=== PATIENT | female | born 1985 | race Caucasian/White ===

== ENCOUNTER 2017-05-31 20:16 | Emergency (ER) | payer BC, MEDICAID ==
[2017-05-31] MEDS ORDERED: Ketorolac 60 MG/2 ML SDV IM ONE (21:18)
[2017-05-31] MEDS ORDERED: Metoclopramide 10 MG/2 ML SDV IM ONE (21:18)
[2017-05-31] MEDS ORDERED: Promethazine 25 MG/ML SDV IM ONE (22:01)
--- NOTE | 2017-05-31 22:01 | EDM.PDOC ---
ED HPI GENERAL MEDICAL PROBLEM - General Chief Complaint: Headache Stated Complaint: MIGRAINE Time Seen by Provider: 05/31/17 21:40 Source of Information: Reports: Patient History Limitations: Reports: No Limitations - History of Present Illness INITIAL COMMENTS - FREE TEXT/NARRATIVE: c/o migraine has bifrontal WATTS x 4d, has used caffeine and ibuprofen, just not all at the same time, last used ibuprofen at 1 PM has nausea, no visual change, eating meals h/o migraine x 6y, PCP obtained MRI and CT 5y ago, say Dr Sims 3w ago and schedule to have MRI and CT repeated many different meds have been tried for WATTS with little benefit, on 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 nausea gone after Reglan, WATTS much better after Toradol and then began to return , now here to drive her home, will use Phenergan, meds given IM d/t likely difficulty of IV access last WATTS 1m ago, and then 2m before that Frontal headache Pain Score (Numeric/FACES): 9 - Related Data Allergies Allergy/AdvReac Type Severity Reaction Status Date / Time acetaminophen Allergy Nausea and Verified 04/14/14 07:57 [From Tylenol-Codeine #3] Vomiting codeine phosphate Allergy Nausea and Verified 04/14/14 07:57 [From Tylenol-Codeine #3] Vomiting Home Meds: Home Meds Ibuprofen 600 mg PO Q6H #100 tablet 04/16/14 [Rx] Amitriptyline [Elavil] 50 mg PO BEDTIME 05/31/17 [History] Past Medical History Gastrointestinal History: Reports: Cholelithiasis Genitourinary History: Reports: None 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: Musculoskeletal History: Reports: Fracture Other Musculoskeletal History: fx R wrist Neurological History: Reports: Migraines Endocrine/Metabolic History: Reports: Obesity/BMI 30+ Hematologic History: Reports: Other (See Below) Other Hematologic History: 'some bleeding disorder caused daughter @ 9mo to be stillborn.' Dermatologic History: Reports: Eczema - Infectious Disease History Infectious Disease History: Reports: Chicken Pox - Past Surgical History GI Surgical History: Reports: Cholecystectomy Female Surgical History: Reports: Section Musculoskeletal Surgical History: Reports: None Social & Family History - Family History Family Medical History: Noncontributory - Tobacco Use Smoking Status *Q: Current Every Day Smoker Years of Tobacco use: 15 Packs/Tins Daily: 0.3 - Caffeine Use Caffeine Use: Reports: Soda Other Caffeine Use: took excedrin migraine with caffeine for WATTS - Recreational Drug Use Recreational Drug Use: No ED ROS GENERAL - Review of Systems Review Of Systems: See Below Constitutional: Reports: No Symptoms HEENT: Reports: No Symptoms Respiratory: Reports: No Symptoms Cardiovascular: Reports: No Symptoms Endocrine: Reports: No Symptoms GI/Abdominal: Reports: No Symptoms : Reports: No Symptoms Musculoskeletal: Reports: No Symptoms Skin: Reports: No Symptoms Neurological: Reports: Headache Psychiatric: Reports: No Symptoms Hematologic/Lymphatic: Reports: No Symptoms Immunologic: Reports: No Symptoms - Physical Exam Exam: See Below Exam Limited By: No Limitations General Appearance: Alert, WD/WN, Mild Distress, Other (alert, nonill, nl speech , good eye contact, sitting on edge of bed) Eye Exam: Bilateral Eye: Normal Inspection Ears: Normal External Exam Nose: Normal Inspection Throat/Mouth: Normal Inspection, Normal Lips, Normal Teeth, Normal Gums, Normal Oropharynx, Normal Voice, No Airway Compromise Head Exam: Atraumatic, Normocephalic Neck: Normal Inspection, Supple, Non-Tender, Full Range of Motion Respiratory/Chest: No Respiratory Distress, Lungs Clear, Normal Breath Sounds Cardiovascular: Regular Rate, Rhythm GI/Abdominal: Soft, Non-Tender Neuro Exam (Abbreviated): Alert, Oriented, CN II-XII Intact, Normal Cognition, No Motor/Sensory Deficits Extremities: Normal Inspection, Normal Range of Motion, Non-Tender, No Pedal Edema, Normal Capillary Refill Psychiatric: Normal Affect, Normal Mood Skin Exam: Warm, Dry, Intact, Normal Color, No Rash Course - Vital Signs Last Recorded V/S: Last Vital Signs Temp 36.4 C 05/31/17 20:41 Pulse 86 05/31/17 20:41 Resp 20 05/31/17 20:41 BP 130/83 05/31/17 20:41 Pulse Ox 100 05/31/17 20:41 - Orders/Labs/Meds Meds: Medications Discontinued Medications Generic Name Dose Route Start Last Admin Trade Name Freq PRN Reason Stop Dose Admin Ketorolac Tromethamine 60 mg 05/31/17 21:18 05/31/17 21:25 Toradol IM 05/31/17 21:19 60 mg ONETIME ONE Administration Metoclopramide HCl 10 mg 05/31/17 21:18 05/31/17 21:27 Reglan IM 05/31/17 21:19 10 mg ONETIME ONE Administration Departure - Departure Time of Disposition: 22:12 Disposition: Home, Self-Care 01 Condition: Good Clinical Impression: Chronic daily headache - Discharge Information Forms: ED Department Discharge Additional Instructions: Continue ibuprofen 200 mg 3 tabs 4 times a day for 24 hours to help break the pain cycle. Use ice on the forehead for 10-15 minutes 4 times a day as needed. Rest. See your doctor in 2-5 days. Call your Physician or Return to Emergency Department if: * Your condition worsens in any way. * You develop fever greater than 100.4. * You have vomitting that does not stop with medications. * You have pain that is not controlled with medications.
[2017-05-31 22:18] VITALS: BP 133/83
== END 2017-05-31 22:20 | disposition home or self-care (01) ==
LOC: FB.ED 20:16
DX: R51 Headache (principal); E66.9 Obesity, unspecified; Z88.5 Allergy status to narcotic agent; Z90.49 Acquired absence of other specified parts of digestive tract; F17.210 Nicotine dependence, cigarettes, uncomplicated
CPT/HCPCS: 96372; 99283; J1885; J2550; J2765

== ENCOUNTER 2017-12-04 21:34 | Emergency (ER) | payer BC, MEDICAID ==
[2017-12-04 21:57] VITALS: BP 152/99
[2017-12-04] MEDS ORDERED: Acetaminophen/HYDROcodone 325-5 MG Tab PO ONE (22:07)
--- NOTE | 2017-12-04 22:08 | EDM.PDOC ---
ED HPI GENERAL MEDICAL PROBLEM - General Chief Complaint: General Stated Complaint: TOOTHACHE Time Seen by Provider: 12/04/17 21:50 Source of Information: Reports: Patient History Limitations: Reports: No Limitations - History of Present Illness INITIAL COMMENTS - FREE TEXT/NARRATIVE: 32 yo female here with dental pain. Has one day left of Amox that she was given earlier. Her dental appt is 12/15/17. No fevers or facial swelling. Tooth has broken off more than once. Her doctor is on medical leave. Onset: Gradual Duration: Day(s):, Getting Worse Location: Reports: Face (L mandible) Quality: Reports: Ache, Other (shooting at times) Severity: Moderate Improves with: Reports: None Worsens with: Reports: Other (? 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 ) - Related Data Allergies Allergy/AdvReac Type Severity Reaction Status Date / Time acetaminophen Allergy Nausea and Verified 12/04/17 21:49 [From Tylenol-Codeine #3] Vomiting codeine phosphate Allergy Nausea and Verified 12/04/17 21:49 [From Tylenol-Codeine #3] Vomiting tramadol Allergy Excitabilit Verified 12/04/17 21:51 y Home Meds: Home Meds Ibuprofen 600 mg PO Q6H #100 tablet 04/16/14 [Rx] Amitriptyline [Elavil] 50 mg PO BEDTIME 05/31/17 [History] Hydrocodone/Acetaminophen [[place] 5-325] 1 - 2 tab PO Q4H PRN #14 tablet [Rx] Penicillin V Potassium 500 mg PO Q8HR #30 tab 12/04/17 [Rx] Past Medical History Gastrointestinal History: Reports: Cholelithiasis Genitourinary History: Reports: None 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: Musculoskeletal History: Reports: Fracture Other Musculoskeletal History: fx R wrist Neurological History: Reports: Migraines Endocrine/Metabolic History: Reports: Obesity/BMI 30+ Hematologic History: Reports: Other (See Below) Other Hematologic History: 'some bleeding disorder caused daughter @ 9mo to be stillborn.' Dermatologic History: Reports: Eczema - Infectious Disease History Infectious Disease History: Reports: Chicken Pox - Past Surgical History GI Surgical History: Reports: Cholecystectomy Female Surgical History: Reports: Section Musculoskeletal Surgical History: Reports: None Social & Family History - Family History Family Medical History: Noncontributory - Tobacco Use Smoking Status *Q: Current Every Day Smoker Years of Tobacco use: 20 Packs/Tins Daily: 0.5 - Caffeine Use Caffeine Use: Reports: Soda Other Caffeine Use: took excedrin migraine with caffeine for WATTS - Alcohol Use Days Per Week of Alcohol Use: 1 Number of Drinks Per Day: 4 Total Drinks Per Week: 4 - Recreational Drug Use Recreational Drug Use: No Other Recreational Drug Type: Denies the use of recreational drugs. ED ROS GENERAL - Review of Systems Review Of Systems: See Below Constitutional: Reports: No Symptoms HEENT: Reports: Dental Pain Respiratory: Reports: No Symptoms Cardiovascular: Reports: No Symptoms GI/Abdominal: Reports: No Symptoms : Reports: No Symptoms Musculoskeletal: Reports: No Symptoms Skin: Reports: No Symptoms Neurological: Reports: No Symptoms ED EXAM, GENERAL - Physical Exam Exam: See Below Exam Limited By: No Limitations General Appearance: Alert, WD/WN, No Apparent Distress Eye Exam: Bilateral Eye: Normal Inspection Ears: Normal External Exam, Normal Canal, Hearing Grossly Normal, Normal TMs Ear Exam: Bilateral Ear: Auricle Normal, Canal Normal, TM normal Nose: Normal Inspection, Normal Mucosa, No Blood Throat/Mouth: Normal Inspection, Normal Lips, Normal Oropharynx, Normal Voice, No Airway Compromise, Other (L mandibular molar is markedly decayed and very tender with percussion. No facial swelling or cervical adenopathy.) Head: Atraumatic, Normocephalic. No: Facial Swelling Neck: Normal Inspection, Supple, Non-Tender. No: Lymphadenopathy (R), Lymphadenopathy (L) Neurological: Alert, Oriented, CN II-XII Intact, No Motor/Sensory Deficits Psychiatric: Normal Affect, Normal Mood Skin Exam: Warm, Dry, Intact, Normal Color, No Rash Lymphatic: No Adenopathy Course - Vital Signs Last Recorded V/S: Last Vital Signs Temp 36.9 C 12/04/17 21:45 Pulse 90 12/04/17 21:45 Resp 16 12/04/17 21:45 BP 152/99 H 12/04/17 21:45 Pulse Ox 100 12/04/17 21:45 Departure - Departure Time of Disposition: 22:09 Disposition: Home, Self-Care 01 Condition: Good Clinical Impression: Pain due to dental caries - Discharge Information Prescriptions: Penicillin V Potassium 500 mg PO Q8HR #30 tab Hydrocodone/Acetaminophen [[place] 5-325] 1 - 2 tab PO Q4H PRN #14 tablet PRN Reason: Pain Referrals: Jeffery Sims MD [Primary Care Provider] - Forms: ED Department Discharge Additional Instructions: Start Penicillin when your Amoxicillin runs out. Take ibuprofen if possible for your pain needed. Add acetaminophen OR [place] for added relief. See your dentist as scheduled. Follow up in the clinic if you need for pain meds before your dental appt.
== END 2017-12-04 22:12 | disposition home or self-care (01) ==
LOC: FB.ED 21:34
DX: K02.9 Dental caries, unspecified (principal); E66.9 Obesity, unspecified; F17.210 Nicotine dependence, cigarettes, uncomplicated; Z88.8 Allergy status to other drugs, medicaments and biological substances; Z88.5 Allergy status to narcotic agent; Z88.6 Allergy status to analgesic agent
CPT/HCPCS: 99282; A9270-GY

== ENCOUNTER 2018-02-12 22:02 | Emergency (ER) | payer BC, MEDICAID ==
--- NOTE | 2018-02-12 23:18 | EDM.PDOC ---
ED HPI GENERAL MEDICAL PROBLEM - General Chief Complaint: General Stated Complaint: TOOTHACHE Time Seen by Provider: 02/12/18 23:00 Source of Information: Reports: Patient History Limitations: Reports: No Limitations - History of Present Illness INITIAL COMMENTS - FREE TEXT/NARRATIVE: Letitia comes into [facility] ED with a left lower molar that apparently fractured a cusp last weekend, and is now painful. This tooth has been painful in the past , and she has not seen a DDS yet. She has tried Ibuprofen for pain relief. 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 Hematologic History: Reports: Other (See Below) Other Hematologic History: 'some bleeding disorder caused daughter @ 9mo to be stillborn.' Dermatologic History: Reports: Eczema - Infectious Disease History Infectious Disease History: Reports: Chicken Pox - Past Surgical History Head Surgeries/Procedures: Reports: None GI Surgical History: Reports: Cholecystectomy Female Surgical History: Reports: Section Other Musculoskeletal Surgeries/Procedures:: R wrist surgery Social & Family History - Family History Family Medical History: Noncontributory - Tobacco Use Smoking Status *Q: Current Every Day Smoker Years of Tobacco use: 20 Packs/Tins Daily: 0.2 - Caffeine Use Caffeine Use: Reports: Soda Other Caffeine Use: took excedrin migraine with caffeine for WATTS - Alcohol Use Days Per Week of Alcohol Use: 1 Number of Drinks Per Day: 4 Total Drinks Per Week: 4 - Recreational Drug Use Recreational Drug Use: No Other Recreational Drug Type: Denies the use of recreational drugs. ED ROS GENERAL - Review of Systems Review Of Systems: ROS reveals no pertinent complaints other than HPI. ED EXAM, GENERAL - Physical Exam Exam: See Below Exam Limited By: No Limitations General Appearance: Alert, WD/WN, Mild Distress Eye Exam: Bilateral Eye: EOMI, Normal Inspection, PERRL Ears: Normal External Exam Nose: Normal Inspection Throat/Mouth: Normal Lips, Normal Gums, Normal Oropharynx, Normal Voice, No Airway Compromise, Other (fractured buccal cusp #18, no swelling of gingivae) Head: Normocephalic Neck: Normal Inspection, Supple, Non-Tender, Full Range of Motion Respiratory/Chest: Lungs Clear Cardiovascular: Regular Rate, Rhythm Neurological: Alert, Oriented, CN II-XII Intact, Normal Cognition, No Motor/ Sensory Deficits Psychiatric: Normal Affect, Normal Mood Skin Exam: Warm, Dry Lymphatic: No Adenopathy Course - Vital Signs Text/Narrative:: Letitia remained stable at the [facility] ED. No meds were administered. Last Recorded V/S: Last Vital Signs Temp 36.8 C 02/12/18 22:45 Pulse 83 02/12/18 22:45 Resp 18 02/12/18 22:45 BP 129/63 02/12/18 22:45 Pulse Ox 100 02/12/18 22:45 Departure - Departure Time of Disposition: 23:17 Disposition: Home, Self-Care 01 Condition: Fair Clinical Impression: Pain due to dental caries - Discharge Information Referrals: Jeffery Sims MD [Primary Care Provider] - - Problem List & Annotations (1) Pain due to dental caries SNOMED Code(s): 71788062, [id number] Code(s): K02.9 - DENTAL CARIES, UNSPECIFIED Status: Acute Current Visit: Yes Annotation/Comment:: I suggested packing defect of #18 with cotton and oil of cloves, NSAIDs for pain, and see DDS regarding surgery. - Problem List Review Problem List Initiated/Reviewed/Updated: Yes - Assessment/Plan Plan: Follow up with DDS.
[2018-02-13 08:20] VITALS: BP 125/67
== END 2018-02-12 23:34 | disposition home or self-care (01) ==
LOC: FB.ED 22:02
DX: K02.9 Dental caries, unspecified (principal); F17.210 Nicotine dependence, cigarettes, uncomplicated; Z88.5 Allergy status to narcotic agent; Z88.8 Allergy status to other drugs, medicaments and biological substances; E66.9 Obesity, unspecified; Z68.42 Body mass index [BMI] 45.0-49.9, adult
CPT/HCPCS: 99282

== ENCOUNTER 2018-03-26 21:06 | Emergency (ER) | payer BC, MEDICAID ==
[2018-03-26] MEDS ORDERED: Ondansetron 4 MG Tab.DIS PO ONE ×3 (21:18→23:03)
[2018-03-26] MEDS ORDERED: Atropine/Diphenoxylate 0.025-2.5 MG Tab PO ONE (21:39)
--- NOTE | 2018-03-26 21:45 | EDM.PDOC ---
ED HPI GENERAL MEDICAL PROBLEM - General Chief Complaint: General Stated Complaint: NAUSEA Time Seen by Provider: 03/26/18 21:30 Source of Information: Reports: Patient, Old Records, RN History Limitations: Reports: No Limitations - History of Present Illness INITIAL COMMENTS - FREE TEXT/NARRATIVE: 32 yo female presents with nausea, vomiting, and diarrhea for a couple days. No bleeding. Thinks she has run a fever at times. Did take acetaminophen before coming to the ER today. Also mentions some red bumps on her lateral R arm that began within the past 24 hrs. Onset: Gradual Onset Date: 03/24/18 Duration: Day(s): (2+), Constant Location: Reports: Abdomen Quality: Reports: Other (cramps) Severity: Mild Improves with: Reports: None Worsens with: Reports: Eating Context: Reports: Other (unknown) Associated Symptoms: Reports: Fever/Chills, Nausea/Vomiting, Rash. 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 Hematologic History: Reports: Other (See Below) Other Hematologic History: 'some bleeding disorder caused daughter @ 9mo to be stillborn.' Dermatologic History: Reports: Eczema - Infectious Disease History Infectious Disease History: Reports: Chicken Pox - Past Surgical History Head Surgeries/Procedures: Reports: None GI Surgical History: Reports: Cholecystectomy Female Surgical History: Reports: Section Other Musculoskeletal Surgeries/Procedures:: R wrist surgery Social & Family History - Family History Family Medical History: Noncontributory - Tobacco Use Smoking Status *Q: Current Every Day Smoker Years of Tobacco use: 21 Packs/Tins Daily: 0.3 - Caffeine Use Caffeine Use: Reports: Soda Other Caffeine Use: took excedrin migraine with caffeine for WATTS - Recreational Drug Use Recreational Drug Use: No ED ROS GENERAL - Review of Systems Review Of Systems: See Below Constitutional: Reports: Fever, Malaise HEENT: Reports: No Symptoms Respiratory: Reports: Other (feels funny in her lungs when she takes a breath in. No SOB. ). Denies: Shortness of Breath, Wheezing, Cough, Sputum, Hemoptysis Cardiovascular: Reports: No Symptoms GI/Abdominal: Reports: Abdominal Pain, Diarrhea, Nausea, Vomiting. Denies: Black Stool, Bloody Stool, Constipation, Distension, Flatus, Hematemesis, Hematochezia, Melena, Stool Incontinence : Reports: No Symptoms Musculoskeletal: Reports: No Symptoms Skin: Reports: No Symptoms Neurological: Reports: No Symptoms Psychiatric: Reports: No Symptoms ED EXAM, GENERAL - Physical Exam Exam: See Below Exam Limited By: No Limitations General Appearance: Alert, WD/WN, No Apparent Distress Eye Exam: Bilateral Eye: Normal Inspection Ears: Normal External Exam, Normal Canal, Hearing Grossly Normal, Normal TMs Ear Exam: Bilateral Ear: Auricle Normal, Canal Normal, TM normal Nose: Normal Inspection, Normal Mucosa, No Blood Throat/Mouth: Normal Inspection, Normal Lips, Normal Oropharynx, Normal Voice, No Airway Compromise Head: Atraumatic, Normocephalic Neck: Normal Inspection, Supple Respiratory/Chest: No Respiratory Distress, Lungs Clear, Normal Breath Sounds, No Accessory Muscle Use Cardiovascular: Regular Rate, Rhythm GI/Abdominal: Normal Bowel Sounds, Soft, No Distention, Tender (mild, diffuse) Back Exam: Normal Inspection. No: CVA Tenderness (R), CVA Tenderness (L) Extremities: Normal Inspection, Normal Range of Motion, Non-Tender, No Pedal Edema Neurological: Alert, Oriented, CN II-XII Intact, Normal Cognition, No Motor/ Sensory Deficits Psychiatric: Normal Affect, Normal Mood Skin Exam: Warm, Dry, Intact, Normal Color, Rash (about 3 tiny papules to the lateral R arm. ) Course - Vital Signs Text/Narrative:: Feeling better after treatment, able to keep liquids down. Last Recorded V/S: Last Vital Signs Temp 36.9 C 03/26/18 21:06 Pulse 99 03/26/18 21:06 Resp 17 03/26/18 21:06 BP 152/89 H 03/26/18 21:06 Pulse Ox 100 03/26/18 21:06 Orthostatic Blood Pressure [ 134/93 Standing] Orthostatic Blood Pressure [ 125/75 Sitting] Orthostatic Blood Pressure [ 137/62 Supine] - Orders/Labs/Meds Orders: Active Orders 24 hr Category Date Time Status Orthostatic Vital Signs [RC] ASDIRECTED Care 03/26/18 21:18 Active Labs: Laboratory Tests 03/26/18 03/26/18 Range/Units 22:30 22:30 WBC 9.5 (4.5-12.0) X10-3/uL RBC 4.57 (3.23-5.20) x10(6)uL Hgb 13.7 (11.5-15.5) g/dL Hct 40.2 (30.0-51.3) % MCV 87.9 (80-96) fL MCH 29.9 (27.7-33.6) pg MCHC 34.0 (32.2-35.4) g/dL RDW 12.2 (11.5-15.5) % Plt Count 364 (125-369) X10(3)uL Sodium 138 (135-145) mmol/L Potassium 4.0 (3.5-5.3) mmol/L Chloride 100 (100-110) mmol/L Carbon Dioxide 30 (21-32) mmol/L BUN 11 (7-18) mg/dL Creatinine 0.9 (0.55-1.02) mg/dL Est Cr Clr Drug Dosing 64.46 mL/min Estimated GFR (MDRD) > 60 (>60) BUN/Creatinine Ratio 12.2 (9-20) Glucose 117 H (80-116) mg/dL Calcium 9.2 (8.6-10.2) mg/dL Meds: Medications Discontinued Medications Generic Name Dose Route Start Last Admin Trade Name Freq PRN Reason Stop Dose Admin Diphenoxylate HCl/Atropine 2 tab 03/26/18 21:39 03/26/18 21:50 Lomotil 0.025-2.5 Mg PO 03/26/18 21:40 2 tab ONETIME ONE Administration Ondansetron HCl 4 mg 03/26/18 21:18 03/26/18 21:22 Zofran Odt PO 03/26/18 21:19 4 mg ONETIME ONE Administration Ondansetron HCl 4 mg 03/26/18 22:24 03/26/18 22:32 Zofran Odt PO 03/26/18 22:25 4 mg ONETIME ONE Administration Departure - Departure Time of Disposition: 23:02 Disposition: Home, Self-Care 01 Condition: Fair Clinical Impression: Gastroenteritis - Discharge Information Referrals: Jeffery Sims MD [Primary Care Provider] - Forms: ED Department Discharge - My Orders Last 24 Hours: My Active Orders 03/26/18 21:18 Orthostatic Vital Signs [RC] ASDIRECTED - Assessment/Plan Last 24 Hours: My Active Orders 03/26/18 21:18 Orthostatic Vital Signs [RC] ASDIRECTED
[2018-03-26 23:24] VITALS: BP 129/66
== END 2018-03-26 23:20 | disposition home or self-care (01) ==
LOC: FB.ED 21:06
DX: K52.9 Noninfective gastroenteritis and colitis, unspecified (principal); E66.9 Obesity, unspecified; F17.210 Nicotine dependence, cigarettes, uncomplicated; Z88.8 Allergy status to other drugs, medicaments and biological substances; Z88.5 Allergy status to narcotic agent
CPT/HCPCS: 36415; 80048; 85027; 99283; A9270

== ENCOUNTER 2019-04-05 19:58 | Emergency (ER) | payer BC, MEDICAID ==
[2019-04-05] MEDS ORDERED: Ondansetron 8 MG Tab.DIS PO ONE (20:19)
[2019-04-05] MEDS ORDERED: Levofloxacin 500 MG Tab PO ONE (21:46)
--- NOTE | 2019-04-05 21:47 | EDM.PDOC ---
ED HPI GENERAL MEDICAL PROBLEM - General Stated Complaint: POOP BLOOD AND VOMIT BLOOD Time Seen by Provider: 04/05/19 19:58 Source of Information: Reports: Patient, Family History Limitations: Reports: No Limitations - History of Present Illness INITIAL COMMENTS - FREE TEXT/NARRATIVE: 33 y.o.w.f with a H/O Migraine H/A came to the ED with due to bood in her stool and urine on 2 occasions, vomited X 1 and H/A. Blood was mixed up with stool. Pt feels nauseated from her migraine H/A and is photophobic. Pt is allergic to Imitrex and Toradol. She is getting usually Dilaudid for her headache in the ED. She was seen by a neurologist many years a go, denied trauma. No Dizziness or light headedness. She has mild temporal H/A. Ambulates fine. gave to 5 children and may be . No other acute medical issues. BP 141/77 RR 16 Pulse ox 100% on RA Temp 36.8 Pulse 85 Onset Date: 04/05/19 Onset Time: 18:00 Duration: Hour(s):, Intermittent Location: Reports: Abdomen Quality: Reports: Burning Severity: Mild Improves with: Reports: None Worsens with: Reports: None Associated Symptoms: Reports: Other (Migraine H/A Dysuria) - Related Data Allergies Allergy/AdvReac Type Severity Reaction Status Date / Time acetaminophen Allergy Nausea and Verified 04/05/19 23:45 [From Tylenol-Codeine #3] Vomiting codeine phosphate Allergy Nausea and Verified 04/05/19 23:45 [From Tylenol-Codeine #3] Vomiting tramadol Allergy Excitabilit Verified 04/05/19 23:45 y Home Meds: Home Meds Multivitamin [Multi-Day Vitamins] 1 each PO DAILY 12/05/17 [History] levoFLOXacin [Levaquin] 500 mg PO Q48H #10 tab 04/05/19 [Rx] Past Medical History HEENT History: Reports: Other (See Below) Other HEENT History: Dental problems. 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 Hematologic History: Reports: Other (See Below) Other Hematologic History: 'some bleeding disorder caused daughter @ 9mo to be stillborn.' Dermatologic History: Reports: Eczema - Infectious Disease History Infectious Disease History: Reports: Chicken Pox - Past Surgical History Head Surgeries/Procedures: Reports: None GI Surgical History: Reports: Cholecystectomy Female Surgical History: Reports: Section Other Musculoskeletal Surgeries/Procedures:: R wrist surgery Social & Family History - Family History Family Medical History: Noncontributory - Caffeine Use Caffeine Use: Reports: Soda Other Caffeine Use: took excedrin migraine with caffeine for WATTS ED ROS GENERAL - Review of Systems Review Of Systems: See Below Constitutional: Reports: No Symptoms HEENT: Reports: No Symptoms Respiratory: Reports: No Symptoms Cardiovascular: Reports: No Symptoms Endocrine: Reports: No Symptoms GI/Abdominal: Reports: Bloody Stool : Reports: Dysuria Musculoskeletal: Reports: No Symptoms Skin: Reports: No Symptoms Neurological: Reports: No Symptoms Psychiatric: Reports: No Symptoms Hematologic/Lymphatic: Reports: No Symptoms Immunologic: Reports: No Symptoms - Physical Exam Exam: See Below Exam Limited By: No Limitations General Appearance: Alert, WD/WN, Mild Distress Eye Exam: Bilateral Eye: Normal Inspection Ears: Normal External Exam Nose: Normal Inspection Throat/Mouth: Normal Inspection, Normal Lips, Normal Voice, No Airway Compromise Head Exam: Atraumatic, Normocephalic Neck: Normal Inspection, Supple, Non-Tender, Full Range of Motion Respiratory/Chest: No Respiratory Distress, Lungs Clear, Normal Breath Sounds, Chest Non-Tender Cardiovascular: Normal Peripheral Pulses, Regular Rate, Rhythm, No Edema, No Gallop, No JVD, No Murmur, No Rub GI/Abdominal: Normal Bowel Sounds, Soft, Non-Tender, No Organomegaly, No Abnormal Bruit, No Mass (Female) Exam: Deferred Rectal (Female) Exam: Bloody Stool (X 2 ) Neuro Exam (Abbreviated): Alert, Oriented, CN II-XII Intact, Normal Cognition, Normal Gait Back Exam: Normal Inspection, Full Range of Motion Extremities: Normal Inspection, Normal Range of Motion, Non-Tender Psychiatric: Normal Affect, Normal Mood Skin Exam: Warm, Dry, Intact, Normal Color, No Rash Course - Vital Signs Text/Narrative:: 33 y.o.w.f with a H/O Migraine H/A came to the ED with due to bood in her stool and urine on 2 occasions, vomited X 1 and H/A. Blood was mixed up with stool. Pt feels nauseated from her migraine H/A and is photophobic. Pt is allergic to Imitrex and Toradol. She is getting usually Dilaudid for her headache in the ED. She was seen by a neurologist many years a go, denied trauma. No Dizziness or light headedness. She has mild temporal H/A. Ambulates fine. gave to 5 children and may be . No other acute medical issues. BP 141/77 RR 16 Pulse ox 100% on RA Temp 36.8 Pulse 85 PE: WNWD W F in NAD with H/A (minor), dysuria and blood in her stool on 2 occasions. Imaging: Not indicated Labs: CBC, BMP nl except: Cr was 1.1 and GFR was 54 UA:L Pos for UTI with Hematuria\ Impression:Migraijne H/A, Hematochezia, UTI Tx: Levaquin, Zofran, Dexamethasone Reexam: Improved Plan: D/C with instructions addendum 04/06/2019,10.00 am Called the pt to remind her to F/U with Dr. Mosely regarding her blood in her stool 1.35 pm I have called [facility], Pharmacist. Changed meds to Levaquin every 24 hours for 10 days. Last Recorded V/S: Last Vital Signs Temp 36.8 C 04/05/19 23:30 Pulse 87 04/05/19 20:45 Resp 16 04/05/19 23:30 BP 130/82 04/05/19 23:30 Pulse Ox 99 04/05/19 23:30 - Orders/Labs/Meds Orders: Active Orders 24 hr Category Date Time Status CULTURE URINE [RM] Stat Lab 04/05/19 21:25 Received Labs: Laboratory Tests 04/05/19 04/05/19 04/05/19 Range/Units 20:43 20:43 21:25 WBC 11.3 (4.5-12.0) X10-3/uL RBC 4.47 (3.23-5.20) x10(6)uL Hgb 14.2 (11.5-15.5) g/dL Hct 40.0 (30.0-51.3) % MCV 89.5 (80-96) fL MCH 31.8 (27.7-33.6) pg MCHC 35.5 H (32.2-35.4) g/dL RDW 13.0 (11.5-15.5) % Plt Count 321 (125-369) X10(3)uL MPV 8.6 (7.4-10.4) fL Neut % (Auto) 61.6 (46-82) % Lymph % (Auto) 31.0 (13-37) % Gove % (Auto) 4.3 (4-12) % Eos % (Auto) 2 (1.0-5.0) % Baso % (Auto) 1 (0-2) % Neut # (Auto) 6.9 (1.6-8.3) # Lymph # (Auto) 3.5 (0.6-5.0) # Gove # (Auto) 0.5 (0.0-1.3) # Eos # (Auto) 0.3 (0.0-0.8) # Baso # (Auto) 0.1 (0.0-0.2) # Sodium 142 (135-145) mmol/L Potassium 3.5 (3.5-5.3) mmol/L Chloride 105 D (100-110) mmol/L Carbon Dioxide 26 (21-32) mmol/L BUN 10 (7-18) mg/dL Creatinine 1.1 H (0.55-1.02) mg/dL Est Cr Clr Drug Dosing TNP Estimated GFR (MDRD) 57 L (>60) BUN/Creatinine Ratio 9.1 (9-20) Glucose 105 (80-116) mg/dL Calcium 9.3 (8.6-10.2) mg/dL Urine Color Yellow (YELLOW) Urine Appearance Cloudy (CLEAR) Urine pH 5.0 (5.0-6.5) Ur Specific [place] 1.020 (1.010-1.025) Urine Protein Negative (NEGATIVE) mg/dL Urine Glucose (UA) Normal (NORMAL) mg/dL Urine Ketones Negative (NEGATIVE) mg/dL Urine Occult Blood Large H (NEGATIVE) Urine Nitrite Negative (NEGATIVE) Urine Bilirubin Negative (NEGATIVE) Urine Urobilinogen 1 H (NEGATIVE) mg/dL Ur Leukocyte Esterase Large H (NEGATIVE) Urine RBC 5-10 H (0-5) Urine WBC 5-10 H (0-5) Ur Squamous Epith Cells Moderate H (NS,R,O) Urine Bacteria Moderate H (NS) Urine Mucus Moderate H (NS) Urine HCG, Qual (NEGATIVE) 04/05/19 Range/Units 21:25 WBC (4.5-12.0) X10-3/uL RBC (3.23-5.20) x10(6)uL Hgb (11.5-15.5) g/dL Hct (30.0-51.3) % MCV (80-96) fL MCH (27.7-33.6) pg MCHC (32.2-35.4) g/dL RDW (11.5-15.5) % Plt Count (125-369) X10(3)uL MPV (7.4-10.4) fL Neut % (Auto) (46-82) % Lymph % (Auto) (13-37) % Gove % (Auto) (4-12) % Eos % (Auto) (1.0-5.0) % Baso % (Auto) (0-2) % Neut # (Auto) (1.6-8.3) # Lymph # (Auto) (0.6-5.0) # Gove # (Auto) (0.0-1.3) # Eos # (Auto) (0.0-0.8) # Baso # (Auto) (0.0-0.2) # Sodium (135-145) mmol/L Potassium (3.5-5.3) mmol/L Chloride (100-110) mmol/L Carbon Dioxide (21-32) mmol/L BUN (7-18) mg/dL Creatinine (0.55-1.02) mg/dL Est Cr Clr Drug Dosing Estimated GFR (MDRD) (>60) BUN/Creatinine Ratio (9-20) Glucose (80-116) mg/dL Calcium (8.6-10.2) mg/dL Urine Color (YELLOW) Urine Appearance (CLEAR) Urine pH (5.0-6.5) Ur Specific [place] (1.010-1.025) Urine Protein (NEGATIVE) mg/dL Urine Glucose (UA) (NORMAL) mg/dL Urine Ketones (NEGATIVE) mg/dL Urine Occult Blood (NEGATIVE) Urine Nitrite (NEGATIVE) Urine Bilirubin (NEGATIVE) Urine Urobilinogen (NEGATIVE) mg/dL Ur Leukocyte Esterase (NEGATIVE) Urine RBC (0-5) Urine WBC (0-5) Ur Squamous Epith Cells (NS,R,O) Urine Bacteria (NS) Urine Mucus (NS) Urine HCG, Qual Negative (NEGATIVE) Meds: Medications Discontinued Medications Generic Name Dose Route Start Last Admin Trade Name Freq PRN Reason Stop Dose Admin Dexamethasone 10 mg 04/05/19 22:56 04/05/19 23:02 Dexamethasone IM 04/05/19 22:57 10 mg ONETIME ONE Administration Levofloxacin 500 mg 04/05/19 21:46 04/05/19 22:45 Levaquin PO 04/05/19 21:47 500 mg ONETIME ONE Administration Ondansetron HCl 8 mg 04/05/19 20:19 04/05/19 21:20 Zofran Odt PO 04/05/19 20:20 8 mg ONETIME ONE Administration Departure - Departure Time of Disposition: 23:29 Disposition: Home, Self-Care 01 Condition: Good Clinical Impression: Hematochezia UTI (urinary tract infection) Qualifiers: Urinary tract infection type: acute cystitis Hematuria presence: with hematuria Qualified Code(s): N30.01 - Acute cystitis with hematuria - Discharge Information Prescriptions: levoFLOXacin [Levaquin] 500 mg PO Q48H #10 tab Instructions: Urinary Tract Infection, Adult Referrals: Jeffery Sims MD [Primary Care Provider] - Forms: ED Department Discharge Additional Instructions: Please increase water intake, please take Levaquin as recommended, please f/u, come back if your symptoms get worse acutely - My Orders Last 24 Hours: My Active Orders 04/05/19 21:25 CULTURE URINE [RM] Stat - Assessment/Plan Last 24 Hours: My Active Orders 04/05/19 21:25 CULTURE URINE [RM] Stat
[2019-04-05] MEDS ORDERED: Dexamethasone 4 MG/ML SDV IM ONE (22:56)
[2019-04-06 00:22] VITALS: BP 130/82
== END 2019-04-05 23:35 | disposition home or self-care (01) ==
LOC: FB.ED 19:58
DX: N30.01 Acute cystitis with hematuria (principal); K92.1 Melena; G43.909 Migraine, unspecified, not intractable, without status migrainosus; Z88.6 Allergy status to analgesic agent; Z88.8 Allergy status to other drugs, medicaments and biological substances; Z79.899 Other long term (current) drug therapy
CPT/HCPCS: 36415; 80048; 81001; 81025; 85025; 87086; 96372; 99284; A9270; J1100

== ENCOUNTER 2019-11-13 09:23 | Emergency (ER) | payer MEDICAID ==
--- NOTE | 2019-11-13 10:25 | EDM.PDOC ---
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 Mid umbilical pain,moderate to severe.Associated with nausea. Nothing helps. She recently found out she is but not sure how far. She also has a h/o recurrent utis and would like to be checked for it.Denies any vaginal bleeding lower abdomen Pain Score (Numeric/FACES): 6 - Related Data Allergies Allergy/AdvReac Type Severity Reaction Status Date / Time acetaminophen Allergy Nausea and Verified 04/05/19 23:45 [From Tylenol-Codeine #3] Vomiting codeine phosphate Allergy Nausea and Verified 04/05/19 23:45 [From Tylenol-Codeine #3] Vomiting tramadol Allergy Excitabilit Verified 04/05/19 23:45 y Home Meds: Home Meds Multivitamin [Multi-Day Vitamins] 1 each PO DAILY 12/05/17 [History] levoFLOXacin [Levaquin] 500 mg PO Q48H #10 tab 04/05/19 [Rx] Past Medical History HEENT History: Reports: Other (See Below) Other HEENT History: Dental problems. Cardiovascular History: Reports: Other (See Below) Other Cardiovascular History: htn towards the end of her pregnancies. 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 Hematologic History: Reports: Other (See Below) Other Hematologic History: 'some bleeding disorder caused daughter @ 9mo to be stillborn.' Dermatologic History: Reports: Eczema - Infectious Disease History Infectious Disease History: Reports: Chicken Pox - Past Surgical History Head Surgeries/Procedures: Reports: None GI Surgical History: Reports: Cholecystectomy Female Surgical History: Reports: Section Other Musculoskeletal Surgeries/Procedures:: R wrist surgery Social & Family History - Family History Family Medical History: Noncontributory - Tobacco Use Smoking Status *Q: Current Some Day Smoker Years of Tobacco use: 21 Packs/Tins Daily: 0.2 - Caffeine Use Caffeine Use: Reports: Energy Drinks, Soda Other Caffeine Use: took excedrin migraine with caffeine for WATTS - Recreational Drug Use Recreational Drug Use: No ED ROS GENERAL - Review of Systems Review Of Systems: Comprehensive ROS is negative, except as noted in HPI. ED EXAM, GI/ABD - Physical Exam Exam: See Below Exam Limited By: No Limitations General Appearance: Alert, WD/WN, No Apparent Distress Eyes: Bilateral: Normal Appearance, EOMI Ears: Normal External Exam, Normal Canal, Hearing Grossly Normal, Normal TMs Nose: Normal Inspection, Normal Mucosa, No Blood Throat/Mouth: Normal Inspection, Normal Lips, Normal Teeth, Normal Gums, Normal Oropharynx, Normal Voice, No Airway Compromise Head: Atraumatic, Normocephalic Neck: Normal Inspection, Supple, Non-Tender, Full Range of Motion Respiratory/Chest: No Respiratory Distress, Lungs Clear, Normal Breath Sounds, No Accessory Muscle Use, Chest Non-Tender Cardiovascular: Normal Peripheral Pulses, Regular Rate, Rhythm, No Edema, No Gallop, No JVD, No Murmur, No Rub GI/Abdominal Exam: Normal Bowel Sounds, Soft, Non-Tender, No Organomegaly, No Distention, No Abnormal Bruit, No Mass, Pelvis Stable (Female) Exam: Normal External Exam, Normal Speculum Exam, Normal Bimanual Exam Rectal (Female) Exam: Normal Exam, Normal Rectal Tone Back Exam: Normal Inspection, Full Range of Motion, NT Extremities: Normal Inspection, Normal Range of Motion, Non-Tender, Normal Capillary Refill, No Pedal Edema Neurological: Alert, Oriented, CN II-XII Intact, Normal Cognition, Normal Gait, Normal Reflexes, No Motor/Sensory Deficits Psychiatric: Normal Affect, Normal Mood Skin Exam: Warm, Dry, Intact, Normal Color, No Rash Lymphatic: No Adenopathy Course - Vital Signs Last Recorded V/S: Last Vital Signs Temp 97.9 F 11/13/19 09:25 Pulse 81 11/13/19 09:25 Resp 14 11/13/19 09:25 BP 135/77 11/13/19 09:25 Pulse Ox 100 11/13/19 09:25 - Orders/Labs/Meds Orders: Active Orders 24 hr Category Date Time Status OB Ltd 1 or More Fetus [US] Stat Exams 11/13/19 10:10 Ordered Labs: Laboratory Tests 11/13/19 11/13/19 Range/Units 09:41 09:41 Urine Color Yellow (YELLOW) Urine Appearance Clear (CLEAR) Urine pH 6.0 (5.0-6.5) Ur Specific [place] 1.020 (1.010-1.025) Urine Protein Negative (NEGATIVE) mg/dL Urine Glucose (UA) Normal (NORMAL) mg/dL Urine Ketones Negative (NEGATIVE) mg/dL Urine Occult Blood Negative (NEGATIVE) Urine Nitrite Negative (NEGATIVE) Urine Bilirubin Negative (NEGATIVE) Urine Urobilinogen Normal (NEGATIVE) mg/dL Ur Leukocyte Esterase Negative (NEGATIVE) Urine WBC 0-5 (0-5) Ur Squamous Epith Cells Few H (NS,R,O) Urine Bacteria Few H (NS) Urine HCG, Qual Positive H (NEGATIVE) Departure - Departure Time of Disposition: 10:23 Disposition: Home, Self-Care 01 Condition: Good Clinical Impression: Intestinal cramps - Discharge Information Instructions: Abdominal Pain During , [id number] Referrals: Jeffery Sims MD [Primary Care Provider] - Forms: ED Department Discharge Care Plan Goals: Follow up with primary care provider on monday. Rest and drink fluids. Sepsis Event Note - Evaluation Sepsis Screening Result: No Definite Risk - Focused Exam Vital Signs: Vital Signs Temp Pulse Resp BP Pulse Ox 11/13/19 09:25 97.9 F 81 14 135/77 100 Date Exam was Performed: 11/13/19 Time Exam was Performed: 10:21 - Problem List & Annotations (1) Early stage of SNOMED Code(s): 088409203 Code(s): Z34.90 - ENCNTR FOR SUPRVSN OF NORMAL , UNSP, UNSP TRIMESTER Status: Acute Current Visit: Yes (2) Intestinal cramps SNOMED Code(s): 103554770, 003367664 Code(s): R10.9 - UNSPECIFIED ABDOMINAL PAIN Status: Acute Current Visit: Yes - Problem List Review Problem List Initiated/Reviewed/Updated: Yes - My Orders Last 24 Hours: My Active Orders 11/13/19 10:10 OB Ltd 1 or More Fetus [US] Stat - Assessment/Plan Last 24 Hours: My Active Orders 11/13/19 10:10 OB Ltd 1 or More Fetus [US] Stat Plan: UA was negative.HCG positive. Discussed follow up with Levi next week.Perhaps US if required.Return to Ed with any worsening symptoms
[2019-11-13 11:06] VITALS: BP 110/62; PULSE 79
== END 2019-11-13 10:27 | disposition home or self-care (01) ==
LOC: FB.ED 09:23
DX: O99.89 Other specified diseases and conditions complicating pregnancy, childbirth and the puerperium (principal); R10.30 Lower abdominal pain, unspecified; O99.330 Smoking (tobacco) complicating pregnancy, unspecified trimester; F17.210 Nicotine dependence, cigarettes, uncomplicated; Z88.6 Allergy status to analgesic agent; Z88.5 Allergy status to narcotic agent; Z79.899 Other long term (current) drug therapy
CPT/HCPCS: 81001; 81025; 99284-25

== ENCOUNTER 2021-03-13 17:36 | Emergency (ER) | payer MEDICAID ==
[2021-03-13] MEDS ORDERED: Amoxicillin 500 MG Cap PO ONE ×2 (17:37→17:57)
[2021-03-13 17:58] VITALS: BP 131/79; PULSE 84
[2021-03-13] MEDS ORDERED: Lidocaine 2% Viscous Solution 15 ML Cup PO ONE (17:58)
[2021-03-13] MEDS ORDERED: Lidocaine 2% Viscous Solution 15 ML Cup ONE (18:00)
--- NOTE | 2021-03-13 18:01 | EDM.PDOC ---
ED HPI GENERAL MEDICAL PROBLEM - General Stated Complaint: MOUTH INFECTION Time Seen by Provider: 03/13/21 17:40 Source of Information: Reports: Patient History Limitations: Reports: No Limitations - History of Present Illness INITIAL COMMENTS - FREE TEXT/NARRATIVE: c/o mouth pain and swell pt with poor dentition, saw dentist 3m ago and had some teeth pulled, has appointment 03/28 to pull additional teeth says she had gotten an antbx a few weeks ago for an tooth abscess on R mandible that then resolved awoke this AM with swell and pain at left mandible - Related Data Allergies Allergy/AdvReac Type Severity Reaction Status Date / Time acetaminophen Allergy Nausea and Verified 04/05/19 23:45 [From Tylenol-Codeine #3] Vomiting codeine phosphate Allergy Nausea and Verified 04/05/19 23:45 [From Tylenol-Codeine #3] Vomiting tramadol Allergy Excitabilit Verified 04/05/19 23:45 y Home Meds: Home Meds Multivitamin [Multi-Day Vitamins] 1 each PO DAILY 12/05/17 [History] levoFLOXacin [Levaquin] 500 mg PO Q48H #10 tab 04/05/19 [Rx] Past Medical History HEENT History: Reports: Other (See Below) Other HEENT History: Dental problems. Cardiovascular History: Reports: Other (See Below) Other Cardiovascular History: htn towards the end of her pregnancies. 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 Hematologic History: Reports: Other (See Below) Other Hematologic History: 'some bleeding disorder caused daughter @ 9mo to be stillborn.' Dermatologic History: Reports: Eczema - Infectious Disease History Infectious Disease History: Reports: Chicken Pox - Past Surgical History Head Surgeries/Procedures: Reports: None GI Surgical History: Reports: Cholecystectomy Female Surgical History: Reports: Section Other Musculoskeletal Surgeries/Procedures:: R wrist surgery Social & Family History - Family History Family Medical History: No Pertinent Family History - Caffeine Use Caffeine Use: Reports: Energy Drinks, Soda Other Caffeine Use: took excedrin migraine with caffeine for WATTS ED ROS ENT - Review of Systems Review Of Systems: See Below Constitutional: Reports: No Symptoms HEENT: Reports: Dental Pain Respiratory: Reports: No Symptoms Endocrine: Reports: No Symptoms GI/Abdominal: Reports: No Symptoms : Reports: No Symptoms Musculoskeletal: Reports: No Symptoms Skin: Reports: No Symptoms Neurological: Reports: No Symptoms Psychiatric: Reports: No Symptoms Hematologic/Lymphatic: Reports: No Symptoms Immunologic: Reports: No Symptoms ED EXAM, ENT - Physical Exam Exam: See Below Exam Limited By: No Limitations General Appearance: Alert, WD/WN, No Apparent Distress Mouth/Throat: Other (tooth #18 is ) Course - Re-Assessments/Exams Free Text/Narrative Re-Assessment/Exam: 03/13/21 18:02 there is 1+ tender at #18 and bulge of gingiva laterally, there is soft tissue swell of 6 x 6 x 1.5 cm overlying mandible, with several 0.5 cm palpable LNs inferiorly Departure - Departure Time of Disposition: 17:58 Disposition: Home, Self-Care 01 Condition: Good Clinical Impression: Dental abscess - Discharge Information *PRESCRIPTION DRUG MONITORING PROGRAM REVIEWED*: Not Applicable *COPY OF PRESCRIPTION DRUG MONITORING REPORT IN PATIENT JENNIFER: Not Applicable Instructions: Dental Abscess Referrals: Jeffery Sims MD [Primary Care Provider] - Additional Instructions: For pain, take ibuprofen 200 mg 4 tabs and acetaminophen 500 mg 2 tabs 3 times a day for 2 days, longer if needed. For pain, put a thin layer of 2% viscous lidocaine on a cotton ball and bite down every hour as needed. For infection, take amoxicillin 500 mg 1 capsule 3 times a day for 7 days. Use cool, soft food and liquids. Use ice for 5 minutes every hour as needed Notify your dentist who may want to schedule an earlier appointment.
[2021-03-13] MEDS ORDERED: Amoxicillin 500 MG Cap ONE (18:02)
== END 2021-03-13 17:55 | disposition home or self-care (01) ==
LOC: FB.ED 17:36
DX: K04.7 Periapical abscess without sinus (principal); Z88.5 Allergy status to narcotic agent; Z88.6 Allergy status to analgesic agent; Z88.8 Allergy status to other drugs, medicaments and biological substances; E66.9 Obesity, unspecified; Z68.42 Body mass index [BMI] 45.0-49.9, adult
CPT/HCPCS: 99282; A9270

== ENCOUNTER 2021-04-14 20:56 | Emergency (ER) | payer MEDICAID ==
[2021-04-14] MEDS ORDERED: Ketorolac 30 MG/ML SDV IVPUSH STA (21:24)
[2021-04-14] MEDS ORDERED: Ondansetron 4 MG/2 ML SDV IVPUSH STA (21:24)
[2021-04-14] MEDS ORDERED: Sodium Chloride 0.9% 10 ML Syringe FLUSH PRN (21:24)
[2021-04-14] MEDS ORDERED: Morphine 2 MG/ML SYRINGE IVPUSH STA (21:26)
[2021-04-14] MEDS ORDERED: Sodium Chloride 0.9% 1,000 ML IV SCH (21:30)
[2021-04-14] MEDS ORDERED: Iopamidol 755 Mg/ML 100 ML Bottle IV ONE (21:33)
--- NOTE | 2021-04-14 22:01 | EDM.PDOC ---
ED HPI GENERAL MEDICAL PROBLEM - General Chief Complaint: Abdominal Pain Stated Complaint: RT SIDE ABD PAIN Time Seen by Provider: 04/14/21 21:05 Source of Information: Reports: Patient History Limitations: Reports: No Limitations - History of Present Illness INITIAL COMMENTS - FREE TEXT/NARRATIVE: Patient presented to the ED because of RLQ pain which started this morning and p rogressively got worse throughout the day. The pain is cramping, continuous, 8/10 with associated nausea but no vomiting. There is no fever,chills, changes in bowel symptoms or urinary symptoms. Right Lower Abdomen Pain Score (Numeric/FACES): 8 - Related Data Allergies Allergy/AdvReac Type Severity Reaction Status Date / Time acetaminophen Allergy Nausea and Verified 04/14/21 21:19 [From Tylenol-Codeine #3] Vomiting codeine phosphate Allergy Nausea and Verified 04/14/21 21:19 [From Tylenol-Codeine #3] Vomiting tramadol Allergy Excitabilit Verified 04/14/21 21:19 y Home Meds: Home Meds Multivitamin [Multi-Day Vitamins] 1 each PO DAILY 12/05/17 [History] Past Medical History HEENT History: Reports: Other (See Below) Other HEENT History: Dental problems. Cardiovascular History: Reports: Other (See Below) Other Cardiovascular History: htn towards the end of her pregnancies. Gastrointestinal History: Reports: Cholelithiasis Genitourinary History: Reports: None POPCORN ATTENDANT History: Reports: , Spontaneous Other POPCORN ATTENDANT History: , misscarriage X2, 1 fullterm stillborn (short cord syndrome) Musculoskeletal History: Reports: Fracture Other Musculoskeletal History: fx R wrist Neurological History: Reports: Migraines Psychiatric History: Reports: Anxiety, Depression, Other (See Below) Other Psychiatric History: hx of drug use Endocrine/Metabolic History: Reports: Diabetes, Gestational, Obesity/BMI 30+ Other Endocrine/Metabolic History: Gestational diabetes. Hematologic History: Reports: Other (See Below) Other Hematologic History: 'some bleeding disorder caused daughter @ 9mo to be stillborn.' Dermatologic History: Reports: Eczema - Infectious Disease History Infectious Disease History: Reports: Chicken Pox - Past Surgical History Head Surgeries/Procedures: Reports: None GI Surgical History: Reports: Cholecystectomy Female Surgical History: Reports: Section Other Female Surgeries/Procedures: C-sections X3. Musculoskeletal Surgical History: Reports: None Other Musculoskeletal Surgeries/Procedures:: R wrist surgery Social & Family History - Family History Family Medical History: No Pertinent Family History - Tobacco Use Tobacco Use Status *Q: Current Every Day Tobacco User Years of Tobacco use: 20 Packs/Tins Daily: 0.2 - Caffeine Use Caffeine Use: Reports: None Other Caffeine Use: took excedrin migraine with caffeine for WATTS - Recreational Drug Use Recreational Drug Use: No ED ROS GENERAL - Review of Systems Review Of Systems: See Below Constitutional: Reports: No Symptoms HEENT: Reports: No Symptoms Respiratory: Reports: No Symptoms Cardiovascular: Reports: No Symptoms Endocrine: Reports: No Symptoms GI/Abdominal: Reports: Abdominal Pain, Nausea : Reports: No Symptoms Musculoskeletal: Reports: No Symptoms Skin: Reports: No Symptoms Neurological: Reports: No Symptoms ED EXAM, GI/ABD - Physical Exam Exam: See Below Exam Limited By: No Limitations General Appearance: Alert, No Apparent Distress Ears: Normal External Exam, Normal Canal Nose: Normal Inspection, Normal Mucosa Throat/Mouth: Normal Inspection, Normal Lips Head: Atraumatic, Normocephalic Neck: Normal Inspection, Supple, Non-Tender, Full Range of Motion Respiratory/Chest: No Respiratory Distress, Lungs Clear, Normal Breath Sounds Cardiovascular: Normal Peripheral Pulses, Regular Rate, Rhythm, No Edema, No JVD, No Murmur GI/Abdominal Exam: Normal Bowel Sounds, Soft, Non-Tender, No Organomegaly Back Exam: Normal Inspection, Full Range of Motion Extremities: Normal Inspection, Normal Range of Motion, Non-Tender Neurological: Alert, Oriented Course - Vital Signs Text/Narrative:: Lab and CT result was reviewed and discussed with patient NS 1 L bolus Zofran 4 mg IV x1 Toradol 30 mg IV x1 Morphine 2 mg IV x1 Last Recorded V/S: Last Vital Signs Temp 36.9 C 04/14/21 21:00 Pulse 83 04/14/21 21:00 Resp 20 04/14/21 21:00 BP 150/93 H 04/14/21 21:00 Pulse Ox 99 04/14/21 21:00 - Orders/Labs/Meds Orders: Active Orders 24 hr Category Date Time Status Abdomen Pelvis w Cont [CT] Stat Exams 04/14/21 21:27 Taken Sodium Chloride 0.9% [Normal Saline] 1,000 ml Med 04/14/21 21:30 Active IV ASDIRECTED Sodium Chloride 0.9% [Saline Flush] Med 04/14/21 21:24 Active 10 ml FLUSH ASDIRECTED PRN Saline Lock Insert [OM.PC] Routine Oth 04/14/21 21:24 Ordered Medication Orders Sodium Chloride (Normal Saline) 1,000 mls @ 999 mls/hr IV ASDIRECTED ANICETO Last Admin: 04/14/21 22:07 Dose: 999 mls/hr Documented by: LEVAR Sodium Chloride (Sodium Chloride 0.9% 10 Ml Syringe) 10 ml FLUSH ASDIRECTED PRN PRN Reason: Keep Vein Open Last Admin: 04/14/21 21:42 Dose: 10 ml Documented by: LEVAR Labs: Laboratory Tests 04/14/21 04/14/21 04/14/21 Range/Units 21:20 21:20 21:20 WBC 11.2 H (3.0-10.3) x10-3/uL RBC 4.49 (3.60-5.20) x10(6)uL Hgb 13.4 (11.4-15.5) g/dL Hct 39.3 (34.2-48.2) % MCV 87.5 (76.7-100.5) fL MCH 29.8 (23.9-33.9) pg MCHC 34.1 (31.9-34.8) g/dL RDW 13.1 (12.3-16.5) % Plt Count 352 (151-488) x10(3)uL MPV 8.9 (7.1-12.4) fL Neut % (Auto) 57.3 (30.8-76.2) % Lymph % (Auto) 34.7 (18.4-52.1) % [place] % (Auto) 5.3 (4.4-15.7) % Eos % (Auto) 1.8 (0.6-8.1) % Baso % (Auto) 0.9 (0.2-1.5) % Neut # (Auto) 6.4 H (1.5-6.3) x10-3/uL Lymph # (Auto) 3.9 (1.0-4.4) x10-3/uL [place] # (Auto) 0.6 (0.3-1.0) x10-3/uL Eos # (Auto) 0.2 (0.0-0.8) x10-3/uL Baso # (Auto) 0.1 (0.0-0.1) x10-3/uL Sodium 140 (135-145) mmol/L Potassium 3.7 (3.5-5.3) mmol/L Chloride 103 (100-110) mmol/L Carbon Dioxide 27 (21-32) mmol/L BUN 9 (7-18) mg/dL Creatinine 1.1 H (0.55-1.02) mg/dL Est Cr Clr Drug Dosing TNP Estimated GFR (MDRD) 57 L (>60) BUN/Creatinine Ratio 8.2 L (9-20) Glucose 98 (80-116) mg/dL Calcium 8.0 L (8.6-10.2) mg/dL Total Bilirubin 0.4 (0.1-1.3) mg/dL AST 18 (5-25) IU/L ALT 28 (12-36) U/L Alkaline Phosphatase 101 (56-112) IU/L Total Protein 8.9 H (6.0-8.0) g/dL Albumin 3.4 L (3.5-5.2) g/dL Globulin 5.5 g/dL Albumin/Globulin Ratio 0.6 Amylase 37 (25-115) U/L Lipase 92 (73-393) U/L Urine Color (YELLOW) Urine Appearance (CLEAR) Urine pH (5.0-6.5) Ur Specific [place] (1.010-1.025) Urine Protein (NEGATIVE) mg/dL Urine Glucose (UA) (NORMAL) mg/dL Urine Ketones (NEGATIVE) mg/dL Urine Occult Blood (NEGATIVE) Urine Nitrite (NEGATIVE) Urine Bilirubin (NEGATIVE) Urine Urobilinogen (NEGATIVE) mg/dL Ur Leukocyte Esterase (NEGATIVE) Urine RBC (0-5) Urine WBC (0-5) Ur Squamous Epith Cells (NS,R,O) Urine Bacteria (NS) Urine HCG, Qual (NEGATIVE) 04/14/21 04/14/21 Range/Units 21:35 21:35 WBC (3.0-10.3) x10-3/uL RBC (3.60-5.20) x10(6)uL Hgb (11.4-15.5) g/dL Hct (34.2-48.2) % MCV (76.7-100.5) fL MCH (23.9-33.9) pg MCHC (31.9-34.8) g/dL RDW (12.3-16.5) % Plt Count (151-488) x10(3)uL MPV (7.1-12.4) fL Neut % (Auto) (30.8-76.2) % Lymph % (Auto) (18.4-52.1) % [place] % (Auto) (4.4-15.7) % Eos % (Auto) (0.6-8.1) % Baso % (Auto) (0.2-1.5) % Neut # (Auto) (1.5-6.3) x10-3/uL Lymph # (Auto) (1.0-4.4) x10-3/uL [place] # (Auto) (0.3-1.0) x10-3/uL Eos # (Auto) (0.0-0.8) x10-3/uL Baso # (Auto) (0.0-0.1) x10-3/uL Sodium (135-145) mmol/L Potassium (3.5-5.3) mmol/L Chloride (100-110) mmol/L Carbon Dioxide (21-32) mmol/L BUN (7-18) mg/dL Creatinine (0.55-1.02) mg/dL Est Cr Clr Drug Dosing Estimated GFR (MDRD) (>60) BUN/Creatinine Ratio (9-20) Glucose (80-116) mg/dL Calcium (8.6-10.2) mg/dL Total Bilirubin (0.1-1.3) mg/dL AST (5-25) IU/L ALT (12-36) U/L Alkaline Phosphatase (56-112) IU/L Total Protein (6.0-8.0) g/dL Albumin (3.5-5.2) g/dL Globulin g/dL Albumin/Globulin Ratio Amylase (25-115) U/L Lipase (73-393) U/L Urine Color Yellow (YELLOW) Urine Appearance Clear (CLEAR) Urine pH 5.0 (5.0-6.5) Ur Specific [place] 1.030 H (1.010-1.025) Urine Protein Negative (NEGATIVE) mg/dL Urine Glucose (UA) Normal (NORMAL) mg/dL Urine Ketones Negative (NEGATIVE) mg/dL Urine Occult Blood Moderate H (NEGATIVE) Urine Nitrite Negative (NEGATIVE) Urine Bilirubin Negative (NEGATIVE) Urine Urobilinogen Normal (NEGATIVE) mg/dL Ur Leukocyte Esterase Negative (NEGATIVE) Urine RBC 0-5 (0-5) Urine WBC 0-5 (0-5) Ur Squamous Epith Cells Few H (NS,R,O) Urine Bacteria Few H (NS) Urine HCG, Qual Negative (NEGATIVE) Meds: Medications Generic Name Dose Route Start Last Admin Trade Name Freq PRN Reason Stop Dose Admin Sodium Chloride 1,000 mls @ 999 mls/hr 04/14/21 21:30 04/14/21 22:07 Normal Saline IV 999 mls/hr ASDIRECTED ANICETO Administration Sodium Chloride 10 ml 04/14/21 21:24 04/14/21 21:42 Sodium Chloride 0.9% 10 Ml Syringe FLUSH 10 ml ASDIRECTED PRN Administration Keep Vein Open Discontinued Medications Generic Name Dose Route Start Last Admin Trade Name Freq PRN Reason Stop Dose Admin Iopamidol 100 ml 04/14/21 21:33 04/14/21 21:56 Iopamidol 755 Mg/Ml 100 Ml Bottle IV 04/14/21 21:34 100 ml . DIRECTED ONE Administration Ketorolac Tromethamine 30 mg 04/14/21 21:24 04/14/21 21:44 Ketorolac 30 Mg/Ml Sdv IVPUSH 04/14/21 21:25 30 mg NOW STA Administration Morphine Sulfate 2 mg 04/14/21 21:26 04/14/21 21:46 Morphine 2 Mg/Ml Syringe IVPUSH 04/14/21 21:27 2 mg NOW STA Administration Ondansetron HCl 4 mg 04/14/21 21:24 04/14/21 21:43 Ondansetron 4 Mg/2 Ml Sdv IVPUSH 04/14/21 21:25 4 mg NOW STA Administration Departure - Departure Time of Disposition: 23:30 Disposition: Home, Self-Care 01 Condition: Good Clinical Impression: Adnexal cyst, Pulmonary nodule - Discharge Information Referrals: Jeffery Sims MD [Primary Care Provider] - Forms: ED Department Discharge Additional Instructions: Please read discharge instructions on adnexal cyst and lung nodule Take ibuprofen 800 mg with tylenol 1000 mg every 8 hours as needed for pain Follow up with your doctor so you can have a pelvic ultrasound Sepsis Event Note (ED) - Evaluation Sepsis Screening Result: No Definite Risk - Focused Exam Vital Signs: Vital Signs Temp Pulse Resp BP Pulse Ox 04/14/21 21:00 36.9 C 83 20 150/93 H 99 - My Orders Last 24 Hours: My Active Orders 04/14/21 21:24 Sodium Chloride 0.9% [Saline Flush] 10 ml FLUSH ASDIRECTED PRN Saline Lock Insert [OM.PC] Routine 04/14/21 21:27 Abdomen Pelvis w Cont [CT] Stat 04/14/21 21:30 Sodium Chloride 0.9% [Normal Saline] 1,000 ml IV ASDIRECTED - Assessment/Plan Last 24 Hours: My Active Orders 04/14/21 21:24 Sodium Chloride 0.9% [Saline Flush] 10 ml FLUSH ASDIRECTED PRN Saline Lock Insert [OM.PC] Routine 04/14/21 21:27 Abdomen Pelvis w Cont [CT] Stat 04/14/21 21:30 Sodium Chloride 0.9% [Normal Saline] 1,000 ml IV ASDIRECTED
[2021-04-14 23:19] VITALS: BP 145/82; PULSE 70
== END 2021-04-14 23:27 | disposition home or self-care (01) ==
LOC: FB.ED 20:56
DX: E27.8 Other specified disorders of adrenal gland (principal); R91.1 Solitary pulmonary nodule; E66.9 Obesity, unspecified; Z68.30 Body mass index [BMI] 30.0-30.9, adult; Z72.0 Tobacco use; Z88.5 Allergy status to narcotic agent; Z88.8 Allergy status to other drugs, medicaments and biological substances
CPT/HCPCS: 36415; 74177; 80053; 81001; 81025; 82150; 83690; 85025; 96374; 96375; 99284; J1885; J2270; J2405; J7030; Q9967

== ENCOUNTER 2022-03-20 16:55 | Emergency (ER) | payer MEDICAID ==
[2022-03-20] MEDS ORDERED: Ondansetron 4 MG Tab.DIS PO ONE (17:19)
[2022-03-20] MEDS ORDERED: cefTRIAXone 1 GM Vial IM ONE (17:19)
[2022-03-20 17:37] VITALS: BP 132/74; PULSE 72
== END 2022-03-20 17:40 | disposition home or self-care (01) ==
LOC: FB.ED 16:55
DX: S00.502A Unspecified superficial injury of oral cavity, initial encounter (principal); L08.9 Local infection of the skin and subcutaneous tissue, unspecified; E66.9 Obesity, unspecified; Z88.5 Allergy status to narcotic agent; Z88.8 Allergy status to other drugs, medicaments and biological substances; Z68.41 Body mass index [BMI] 40.0-44.9, adult
CPT/HCPCS: 96372; 99281; 99283-25; J0696; Q0162

== ENCOUNTER 2023-05-28 15:51 | Emergency (ER) | payer OTHER, MEDICAID ==
[2023-05-28 17:45] VITALS: BP 123/80; PULSE 76
== END 2023-05-28 18:15 | disposition home or self-care (01) ==
LOC: FB.ED 15:51
DX: S13.4XXA Sprain of ligaments of cervical spine, initial encounter (principal); S43.51XA Sprain of right acromioclavicular joint, initial encounter; E66.9 Obesity, unspecified; Z68.41 Body mass index [BMI] 40.0-44.9, adult; Z98.890 Other specified postprocedural states; Z88.5 Allergy status to narcotic agent; Z88.8 Allergy status to other drugs, medicaments and biological substances; V86.55XA Driver of 3- or 4- wheeled all-terrain vehicle (ATV) injured in nontraffic accident, initial encounter; Y92.410 Unspecified street and highway as the place of occurrence of the external cause
CPT/HCPCS: 72040; 73030-RT; 99283